=== PATIENT | female | born 1960 | race Caucasian/White ===

== ENCOUNTER 2018-12-31 14:37 | Outpatient (CLI) | payer OTHER ==
--- NOTE | 2018-12-31 15:40 | BD ---
Exam: DEXA Bone Density 12/31/18 HISTORY: Postmenopausal. Lumbar Spine: BMD (g/cm2) T-SCORE L1 0.719 -2.5 L2 0.787 -2.2 L3 0.798 -2.6 L4 0.783 -2.5 L1-L4 0.774 -2.5 Left Femoral Neck: 0.564 -2.6 Total Femur: 0.762 -1.5 Impression: Osteoporosis of the lumbar spine left femoral neck. POS: [facility]
--- NOTE | 2019-01-07 13:11 | MMO ---
Bilateral MAMMO Bilat Screen [facility]DI+[facility]. CLINICAL HISTORY: Patient is 58 years old and is seen for screening. The patient has the following family history of breast cancer: mother, at age 61, malignant (generic). The patient has no personal history of cancer. VIEWS: The views performed were: bilateral craniocaudal with tomosynthesis and bilateral mediolateral oblique with tomosynthesis. FILMS COMPARED: The present examination has been compared to prior imaging studies performed at [facility] on 09/14/2016 and 10/29/2017. MAMMOGRAM FINDINGS: There are scattered fibroglandular densities. There is a focal asymmetry seen in the outer region of the left breast. In the right breast, there are no suspicious masses, calcifications or areas of architectural distortion. IMPRESSION: FOCAL ASYMMETRY IN THE LEFT BREAST REQUIRES ADDITIONAL EVALUATION. RECOMMEND DIAGNOSTIC MAMMOGRAM. ULTRASOUND MAY ALSO PROVE USEFUL AT RECALL. THE RESULTS OF THIS EXAM WERE SENT TO THE PATIENT. ACR BI-RADS Category 0 - Incomplete: Need additional imaging evaluation. [facility] will notify the patient of the need for additional imaging services. MAMMOGRAPHY NOTE: 1. A negative mammogram report should not delay a biopsy if a dominant of clinically suspicious mass is present. 2. Approximately 10% to 15% of breast cancers are not detected by mammography. 3. Adenosis and dense breasts may obscure an underlying neoplasm.
== END 2018-12-31 14:38 | disposition home or self-care (01) ==
LOC: BICMAMMO 14:37
PROVIDERS: ATTEND Obstetrics & Gynecology
DX: Z12.31 Encounter for screening mammogram for malignant neoplasm of breast (principal); Z13.820 Encounter for screening for osteoporosis; Z80.3 Family history of malignant neoplasm of breast; N64.89 Other specified disorders of breast; M81.0 Age-related osteoporosis without current pathological fracture
CPT/HCPCS: 77063; 77067; 77080

== ENCOUNTER 2019-01-13 12:52 | Outpatient (CLI) | payer OTHER ==
--- NOTE | 2019-01-13 13:37 | MMO ---
Left Breast MAMMO Unilat Diag DDI LT+IVONNE. CLINICAL HISTORY: Patient is 58 years old and is seen for diagnostic exam. The patient has the following family history of breast cancer: mother, at age 61, malignant (generic). The patient has no personal history of cancer. VIEWS: The views performed were: left craniocaudal spot compression with tomosynthesis; left mediolateral oblique spot compression with tomosynthesis; and left mediolateral with tomosynthesis. FILMS COMPARED: The present examination has been compared to prior imaging studies performed at [facility] on 12/31/2018 and 01/13/2019, and at [facility] on 09/14/2016 and 10/29/2017. MAMMOGRAM FINDINGS: There are scattered fibroglandular densities. There are two round masses with circumscribed margins seen in the upper-outer region of the left breast. The masses were shown to be cysts on ultrasound. There are no suspicious masses, suspicious calcifications, or new areas of architectural distortion. IMPRESSION: THERE IS NO MAMMOGRAPHIC EVIDENCE OF MALIGNANCY. A ROUTINE FOLLOW-UP MAMMOGRAM IN 1 YEAR IS RECOMMENDED. THE RESULTS OF THIS EXAM WERE SENT TO THE PATIENT. ACR BI-RADS Category 2 - Benign finding MAMMOGRAPHY NOTE: 1. A negative mammogram report should not delay a biopsy if a dominant of clinically suspicious mass is present. 2. Approximately 10% to 15% of breast cancers are not detected by mammography. 3. Adenosis and dense breasts may obscure an underlying neoplasm.
--- NOTE | 2019-01-13 13:45 | ULT ---
LEFT BREAST ULTRASOUND: HISTORY: Focal asymmetry seen in the upper outer aspect of the left breast on screening mammography. COMPARISON: Mammograms from 01/13/2019, 12/31/2018, and 10/29/2017. TECHNIQUE: Multiplanar marie-scale and color Doppler images were obtained in a targeted ultrasound in the upper o uter aspect of the left breast. FINDINGS: There are anechoic cysts in the upper outer aspect of the left breast. At the 3 o'clock position of the left breast, there is an anechoic cyst, measuring 8 mm in greatest dimension, with increased thro ugh transmission. A smaller cyst is seen in the 2 o'clock position of the left breast, measuring 5 m m in greatest dimension. No suspicious solid mass or suspicious shadowing is seen. IMPRESSION: BI-RADS category 2-Benign findings. Annual screening mammography is recommended. POS: [facility]
== END 2019-01-13 12:53 | disposition home or self-care (01) ==
LOC: BICMAMMO 12:52
PROVIDERS: ATTEND Obstetrics & Gynecology
DX: N64.89 Other specified disorders of breast (principal); Z80.3 Family history of malignant neoplasm of breast
CPT/HCPCS: G0279

== ENCOUNTER 2020-02-05 09:45 | Outpatient (CLI) | payer OTHER ==
--- NOTE | 2020-02-05 11:00 | MMO ---
Bilateral MAMMO Bilat Screen [facility]DI[facility]. CLINICAL HISTORY: Patient is 59 years old and is seen for screening. The patient has the following family history of breast cancer: mother, at age 61, malignant (generic). The patient has no personal history of cancer. VIEWS: The views performed were: bilateral craniocaudal with tomosynthesis and bilateral mediolateral oblique with tomosynthesis. FILMS COMPARED: The present examination has been compared to prior imaging studies performed at [facility] on 12/31/2018 and 01/13/2019, and at [facility] on 10/29/2017. This study has been interpreted with the assistance of computer-aided detection. MAMMOGRAM FINDINGS: There are scattered fibroglandular densities. There are no suspicious masses, suspicious calcifications, or new areas of architectural distortion. IMPRESSION: THERE IS NO MAMMOGRAPHIC EVIDENCE OF MALIGNANCY. A ROUTINE FOLLOW-UP MAMMOGRAM IN 1 YEAR IS RECOMMENDED. THE RESULTS OF THIS EXAM WERE SENT TO THE PATIENT. ACR BI-RADS Category 2 - Benign finding MAMMOGRAPHY NOTE: 1. A negative mammogram report should not delay a biopsy if a dominant of clinically suspicious mass is present. 2. Approximately 10% to 15% of breast cancers are not detected by mammography. 3. Adenosis and dense breasts may obscure an underlying neoplasm. Reported by: ERLINDA ARAYA MD Electonically Signed: [id number]
== END 2020-02-05 09:46 | disposition home or self-care (01) ==
LOC: BICMAMMO 09:45
PROVIDERS: ATTEND Obstetrics & Gynecology
DX: Z12.31 Encounter for screening mammogram for malignant neoplasm of breast (principal); Z80.3 Family history of malignant neoplasm of breast
CPT/HCPCS: 77063; 77067

== ENCOUNTER 2021-02-21 10:45 | Outpatient (CLI) | payer OTHER | END 2021-02-21 10:46 | disposition home or self-care (01) | LOC: BICMAMMO 10:45 | PROVIDERS: ATTEND Obstetrics & Gynecology | DX: Z12.31 Encounter for screening mammogram for malignant neoplasm of breast (principal); Z80.3 Family history of malignant neoplasm of breast | CPT/HCPCS: 77063; 77067 ==

== ENCOUNTER 2023-06-29 12:59 | Outpatient (CLI) | payer OTHER | END 2023-06-29 13:00 | disposition home or self-care (01) | LOC: BICMAMMO 12:59 | PROVIDERS: ATTEND Internal Medicine Hematology & Oncology | DX: M81.8 Other osteoporosis without current pathological fracture (principal); M85.851 Other specified disorders of bone density and structure, right thigh; M85.852 Other specified disorders of bone density and structure, left thigh | CPT/HCPCS: 77080 ==